=== PATIENT | male | born 1975 | race Caucasian/White ===

== ENCOUNTER → 2017-09-13 12:24 | Outpatient (CLI) | payer SELFPAY ==
--- NOTE | 2017-09-13 12:32 | RAD_ITS ---
STUDY: X-RAY - LUMBAR SPINE REASON FOR EXAM: Male, 41 years old. Disc degeneration. History of L4-5 partial disc removed TECHNIQUE: 2 view(s) of the lumbar spine were obtained. COMPARISON: X-rays of the lumbar spine on April 22, 2016 FINDINGS: Normal lumbar lordosis. There is no substantial scoliosis. There is a normal alignment of the vertebrae. Normal vertebral bodies. There are multiple syndesmophytes throughout the lumbar spine and possible ankylosis of the sacroiliac joints. The findings suggest ankylosing spondylitis.. Normal disc space heights. The soft tissue structures are unremarkable. RAD/Lumbar Spine 2 or 3 Views IMPRESSION: Multiple syndesmophytes of the lumbar spine with ankylosis of the sacroiliac joints consistent with ankylosing spondylitis. No acute lesions noted. No significant changes since the prior examination Electronically Signed: Dmitry Beck MD, FACR at 13:26 EST , Service support ,
== END ==
PROVIDERS: Family Provider Family Medicine; PCP Family Medicine; Visit Provider Anesthesiology Pain Medicine
DX: M51.36 Other intervertebral disc degeneration, lumbar region (principal); M45.6 Ankylosing spondylitis lumbar region
CPT/HCPCS: 72100

== ENCOUNTER → 2017-11-30 07:31 | Outpatient (CLI) | payer OTHER, SELFPAY | PROVIDERS: Family Provider Family Medicine; PCP Family Medicine | DX: E27.40 Unspecified adrenocortical insufficiency (principal) | CPT/HCPCS: 36415; 82533 ==

== ENCOUNTER → 2018-04-04 07:32 | Outpatient (CLI) | payer SELFPAY ==
[2018-04-04 08:53] LABS: Free T3 2.9 pg/mL (2.18-3.98)
[2018-04-04 08:54] LABS: Vitamin D,25 Hydroxy 35.4 ng/mL (29.95-100.01)
== END ==
PROVIDERS: Family Provider Family Medicine; PCP Family Medicine
DX: E03.9 Hypothyroidism, unspecified (principal); R53.83 Other fatigue
CPT/HCPCS: 36415; 82306; 84403; 84481

== ENCOUNTER → 2018-06-16 08:23 | Outpatient (CLI) | payer SELFPAY ==
[2018-06-16 10:34] LABS: Absolute Lymphocyte Count 1.57 X10^3/ul (0.83-4.51); Absolute Neutrophil Count 2.6 X10^3/uL (2.0-7.7); Basophil# 0.01 X10^3/uL; Basophil% 0.2 % (0-1); Eosinophil# 0.14 X10^3/uL; Eosinophils% 2.8 % (0-5); Hematocrit 40.3 % (40-54); Hemoglobin 12.8 g/dl (13.0-16.5); Lymphocyte # 1.57 X10^3/ul (4.0); Lymphocyte % 31.9 % (19-41); Mean Corp Hgb Conc 31.8 g/gl (32-36); Mean Corpuscular Hgb 27.8 pg (27.0-32.0); Mean Corpuscular Volume 87.6 fL (80-94); Mean Platelet Vol. 11.2 fl (6.2-12.0); Monocyte# 0.58 X10^3/uL; Monocyte% 11.8 % (0-10); Neutrophil # 2.62 X10^3/uL (2.7-7.7); Neutrophil % 53.3 % (47-70); Platelet Count 232 K/mm3 (150-450); RBC Distribution Width CV 14.2 % (11.6-14.6); RBC Distribution Width SD 45.4 fl (35.1-43.9); White Blood Count 4.9 K/mm3 (4.4-11.0)
[2018-06-16 10:37] LABS: POSITIVE COUNT NO; POSITIVE DIFFERENTIAL NO; POSITIVE MORPHOLOGY NO
[2018-06-16 11:02] LABS: Anion Gap 10 (5-15); BUN 15 mg/dL (7-18); BUN/Creat Ratio 12.5 RATIO (10-20); Calcium,Total 8.7 mg/dL (8.5-10.1); Chloride 108 mmol/L (98-107); EST Glomerular Filtration Rate 70 mL/min (>60); Est Glom Filt Rate - Afr Amer 85 mL/min (>60); Glucose 73 mg/dL (74-106); Potassium 4.1 mmol/L (3.5-5.1); Sodium Level 144 mmol/L (136-145)
== END ==
PROVIDERS: Family Provider Family Medicine; PCP Family Medicine; Referring Provider Surgery; Visit Provider Surgery
DX: K62.5 Hemorrhage of anus and rectum (principal)
CPT/HCPCS: 36415; 80048; 85025

== ENCOUNTER 2018-06-24 05:27 | Day surgery (SDC) | payer SELFPAY, OTHER ==
[2018-06-24] VITALS (7 sets, daily range): BP systolic 110–127; BP diastolic 76–101; PULSE 68–80; RESP 16; TEMP 36.5; O2SAT 95–100; BMI 28.7
--- NOTE | 2018-06-24 | IMM_PTH ---
PATIENT: TRENT EMERSON LOC: EN U#:[id number] AGE/SX: 42/M ROOM: RE06/24/[address]: Dr. Celso Duncan MD : 1975 BED: DIS: 06/24/2018 SPEC #: [id number] RECD: 06/27/18 10:27 STATUS: MARGI REGermán #: [id number] IRMA: 06/24/18 00:[address]: Celso Duncan DEPT: IMMUNOHISTOCHEMISTRY RECD BY: Jeannine Sanford ENTERED: 06/27/18 10:27 SP TYPE: IMMUNO OTHR DR: Dr. Flavio Engel DO Tissues: B - Stomach, NOS Procedures: H Pylori (initial) PHYSICIAN & INSTITUTION [place] [id number] SPECIMEN INFORMATION: Tissue Source: B - Antral biopsy Clinical Info: GERD, esophagitis, rectal bleeding Specimen Number: [id number] CPT code: 14099 METHODOLOGY: Deparaffinized sections of prefer/formalin-fixed tissue or PAP/DQ stained slides are incubated with monoclonal/polyclonal antibodies/oligonucleotide probes. Localization is made via biotin free immunoperoxidase method. Appropriate controls are performed and reacted as expected. Results on target cell population are indicated in the following table: RESULTS: ANTIBODY / CLONE RESULT Block B H Pylori (polyclonal) negative These tests were developed and their performance characteristics determined by [facility]. They may not have been cleared or approved by the U.S. Food and Drug Administration. The FDA has determined that such clearance or approval is not necessary. INTERPRETATION: B. Antral biopsy: Negative for Helicobacter pylori organisms. AM:lindsey 06/28/18
--- NOTE | 2018-06-24 06:30 | EGD_PTH ---
PATIENT: TRENT EMERSON LOC: EN U#:[id number] AGE/SX: 42/M ROOM: RE06/24/[address]: Dr. Celso Duncan MD : 1975 BED: DIS: 06/24/2018 SPEC #: [id number] RECD: 06/24/18 13:41 STATUS: MARGI LEISA #: [id number] IRMA: 06/24/18 06:[address]: Celso Duncan DEPT: SURGICAL PATHOLOGY RECD BY: Hong Montes De Oca ENTERED: 06/24/18 13:42 SP TYPE: EGD BIOPSY OT DR: Dr. Flavio Engel, Tissues: A - Duodenum, NOS B - Gastric mucous membrane C - Esophageal mucous membrane D - COLON BIOPSY Procedures: Surgery Specimen Level IV HEADER OPERATION: Colonoscopy, EGD (MOD) PRE-OP DIAGNOSIS: GERD, esophagitis, rectal bleeding TISSUE SUBMITTED: A. Duodenal biopsy, B. Antral biopsy for histo and H. Pylori, C. Distal esophagus biopsy, D. Random colonic biopsy MICROSCOPIC DIAGNOSIS A. Duodenum, biopsy: No significant pathologic change. No evidence of duodenitis. B. Gastric antrum, biopsy: Mild chronic gastritis. C. Distal esophagus, biopsy: Fragments of benign squamous mucosa. D. Colon, random biopsy: No pathologic change. AM:lindsey 06/27/18 COMMENT A. Mild Meaghan's gland hyperplasia is suspected. B. The results of immunohistochemistry for Helicobacter pylori will be reported separately ([id number]). MICROSCOPIC DESCRIPTION Slides are reviewed. GROSS DESCRIPTION A - Received in fixative is one container labeled with the patient's name and designated duodenum. The specimen consists of one irregular fragment of light berger soft tissue that measures 0.5 x 0.2 x 0.1 cm. The specimen is totally submitted in one cassette. B - Received in fixative is one container labeled with the patient's name and designated biopsy antrum - gastric. The specimen consists of one irregular fragment of light berger soft tissue that measures 0.2 x 0.1 x 0.1 cm. The specimen is totally submitted in one cassette. C - Received in fixative is one container labeled with the patient's name and designated biopsy distal esophagus. The specimen consists of two irregular fragments of light berger soft tissue that in aggregate measure 0.5 x 0.3 x 0.1 cm. The specimen is totally submitted in one cassette. D - Received in fixative is one container labeled with the patient's name and designated random colon biopsy. The specimen consists of multiple irregular fragments of light berger soft tissue that in aggregate measure 2 x 0.5 x 0.1 cm. The specimen is totally submitted in one cassette. / SJ:rg 06/24/18 TC:3 CPT: 41316 x4
--- NOTE | 2018-06-24 07:09 | OP.ENDO_ITS ---
Patient Name: Pete Headley Procedure Date: 06/24/2018 6:09 AM Date of : 1975 Age: 42 Procedure: Upper GI endoscopy Indications: Suspected esophageal reflux Providers: Celso Duncan MD Referring MD: Celso Duncan MD Medicines: Midazolam 4 mg IV, Meperidine 100 mg IV Complications: No immediate complications. Procedure: Pre-Anesthesia Assessment: - Prior to the procedure, a History and Physical was performed, and patient medications and allergies were reviewed. The patient's tolerance of previous anesthesia was also reviewed. The risks and benefits of the procedure and the sedation options and risks were discussed with the patient. All questions were answered, and informed consent was obtained. Prior Anticoagulants: The patient has taken no previous anticoagulant or antiplatelet agents. ASA Grade Assessment: II - A patient with mild systemic disease. After reviewing the risks and benefits, the patient was deemed in satisfactory condition to undergo the procedure. After obtaining informed consent, the endoscope was passed under direct vision. Throughout the procedure, the patient's blood pressure, pulse, and oxygen saturations were monitored continuously. The gastroscope was introduced through the mouth, and advanced to the second part of duodenum. The upper GI endoscopy was accomplished without difficulty. The patient tolerated the procedure well. Moderate Sedation: Moderate (conscious) sedation was personally administered by the endoscopist. The following parameters were monitored: oxygen saturation, heart rate, blood pressure, and response to care. Total physician intraservice time was 15 minutes. Scope In: 6:38:24 AM Scope Out: 6:43:52 AM Total Procedure Duration Time 0 hours 5 minutes 28 seconds Findings: LA Grade A (one or more mucosal breaks less than 5 mm, not extending between tops of 2 mucosal folds) esophagitis with no bleeding was found 40 cm from the incisors. Biopsies were taken with a cold forceps for histology. A small hiatal hernia was present. Diffuse mildly erythematous mucosa without bleeding was found in the gastric antrum. Biopsies were taken with a cold forceps for histology. Diffuse mildly erythematous mucosa without active bleeding and with no stigmata of bleeding was found in the first portion of the duodenum. Biopsies were taken with a cold forceps for histology. The hypopharynx was normal. Impression: - LA Grade A reflux esophagitis. Biopsied. - Small hiatal hernia. - Erythematous mucosa in the antrum. Biopsied. - Erythematous duodenopathy. Biopsied. - Normal hypopharynx. Recommendation: - Discharge patient to home. - Resume previous diet. - Continue present medications. - Use Prilosec (omeprazole) 40 mg PO daily. - Telephone my office for pathology results in 1 week. Procedure Code(s): --- Professional --- 47615, Esophagogastroduodenoscopy, flexible, transoral; with biopsy, single or multiple 08146, 59, Moderate sedation services provided by the same physician or other qualified health care partner performing the diagnostic or therapeutic service that the sedation supports, requiring the presence of an independent trained observer to assist in the monitoring of the patient's level of consciousness and physiological status; initial 15 minutes of intraservice time, patient age 5 years or older Diagnosis Code(s): --- Professional --- K21.0, Gastro-esophageal reflux disease with esophagitis K44.9, Diaphragmatic hernia without obstruction or gangrene K31.89, Other diseases of stomach and duodenum CPT copyright 2017 [employer]. All rights reserved. The codes documented in this report are preliminary and upon superintendent general review may be revised to meet current compliance requirements. Celso Duncan MD 06/24/2018 7:08:42 AM This report has been signed electronically. Number of Addenda: 0 Note Initiated On: 06/24/2018 6:09 AM
--- NOTE | 2018-06-24 07:12 | OP.ENDO_ITS ---
Patient Name: Pete Headley Procedure Date: 06/24/2018 6:45 AM Date of : 1975 Age: 42 Procedure: Colonoscopy Indications: Rectal bleeding Providers: Celso Duncan MD Referring MD: Celso Duncan MD Medicines: Midazolam 1 mg IV, Meperidine 50 mg IV Patient Profile: Last Colonoscopy: none. The patient's first colonoscopy is today. Complications: No immediate complications. Procedure: Pre-Anesthesia Assessment: - Prior to the procedure, a History and Physical was performed, and patient medications and allergies were reviewed. The patient's tolerance of previous anesthesia was also reviewed. The risks and benefits of the procedure and the sedation options and risks were discussed with the patient. All questions were answered, and informed consent was obtained. Prior Anticoagulants: The patient has taken no previous anticoagulant or antiplatelet agents. ASA Grade Assessment: II - A patient with mild systemic disease. After reviewing the risks and benefits, the patient was deemed in satisfactory condition to undergo the procedure. - Prior to the procedure, a History and Physical was performed, and patient medications and allergies were reviewed. The patient's tolerance of previous anesthesia was also reviewed. The risks and benefits of the procedure and the sedation options and risks were discussed with the patient. All questions were answered, and informed consent was obtained. Prior Anticoagulants: The patient has taken no previous anticoagulant or antiplatelet agents. ASA Grade Assessment: II - A patient with mild systemic disease. After reviewing the risks and benefits, the patient was deemed in satisfactory condition to undergo the procedure. After I obtained informed consent, the scope was passed under direct vision. Throughout the procedure, the patient's blood pressure, pulse, and oxygen saturations were monitored continuously. The colonoscope was introduced through the anus and advanced to the cecum, identified by appendiceal orifice and ileocecal valve. The colonoscopy was performed without difficulty. The patient tolerated the procedure well. The quality of the bowel preparation was good. The ileocecal valve was photographed. Moderate Sedation: Moderate (conscious) sedation was personally administered by the endoscopist. The following parameters were monitored: oxygen saturation, heart rate, blood pressure, and response to care. Total physician intraservice time was 15 minutes. Scope In: 6:47:31 AM Scope Withdrawal Time 0 hours 9 minutes 5 seconds Scope Out: 7:01:01 AM Total Procedure Duration Time 0 hours 13 minutes 30 seconds Findings: The perianal and digital rectal examinations were normal. Multiple diverticula were found in the sigmoid colon. Biopsies for histology were taken with a cold forceps from the entire colon for evaluation of microscopic colitis. The exam was otherwise without abnormality. Impression: - Diverticulosis in the sigmoid colon. Biopsied. - The examination was otherwise normal. Recommendation: - Discharge patient to home. - Resume previous diet. - Continue present medications. - Repeat colonoscopy in 10 years for screening purposes. - Telephone my office for pathology results in 1 week. Procedure Code(s): --- Professional --- 93459, Colonoscopy, flexible; with biopsy, single or multiple 72206, 59, Moderate sedation services provided by the same physician or other qualified health pet care attendant performing the diagnostic or therapeutic service that the sedation supports, requiring the presence of an independent trained observer to assist in the monitoring of the patient's level of consciousness and physiological status; initial 15 minutes of intraservice time, patient age 5 years or older Diagnosis Code(s): --- Professional --- K62.5, Hemorrhage of anus and rectum K57.30, Diverticulosis of large intestine without perforation or abscess without bleeding CPT copyright 2017 [employer]. All rights reserved. The codes documented in this report are preliminary and upon cardiac exercise physiologist review may be revised to meet current compliance requirements. Celso Duncan MD 06/24/2018 7:12:16 AM This report has been signed electronically. Number of Addenda: 0 Note Initiated On: 06/24/2018 6:45 AM
== END 2018-06-24 07:46 | disposition home or self-care (01) ==
LOC: EN 05:27 → AC 05:32
PROVIDERS: Family Provider Family Medicine; PCP Family Medicine; Referring Provider Surgery; Visit Provider Surgery
PROC: 0DJD8ZZ Inspection of Lower Intestinal Tract, Via Natural or Artificial Opening Endoscopic (ICD-10-PCS; CPT 45378; principal; 2018-06-24 06:25)
DX: K21.0 Gastro-esophageal reflux disease with esophagitis (principal); K29.50 Unspecified chronic gastritis without bleeding; K44.9 Diaphragmatic hernia without obstruction or gangrene; K31.89 Other diseases of stomach and duodenum; K62.5 Hemorrhage of anus and rectum; K57.30 Diverticulosis of large intestine without perforation or abscess without bleeding; E03.9 Hypothyroidism, unspecified; F32.9 Major depressive disorder, single episode, unspecified; F41.9 Anxiety disorder, unspecified; M19.90 Unspecified osteoarthritis, unspecified site; Z79.899 Other long term (current) drug therapy; Z87.891 Personal history of nicotine dependence
CPT/HCPCS: 43239; 45380; 88305; 88342; 99152; 99153; J7120

== ENCOUNTER → 2018-09-27 12:52 | Outpatient (CLI) | payer OTHER, SELFPAY ==
[2018-06-24 05:48] VITALS: BMI 28.7
== END ==
PROVIDERS: Family Provider Family Medicine; PCP Family Medicine
DX: M11.9 Crystal arthropathy, unspecified (principal)
CPT/HCPCS: 36415; 86140

== ENCOUNTER → 2018-10-26 08:21 | Outpatient (CLI) | payer OTHER, SELFPAY ==
[2018-06-24 05:48] VITALS: BMI 28.7
[2018-10-26 09:10] LABS: Free T3 3.1 pg/mL (2.18-3.98)
== END ==
PROVIDERS: Family Provider Family Medicine; PCP Family Medicine
DX: E03.9 Hypothyroidism, unspecified (principal)
CPT/HCPCS: 36415; 84481

== ENCOUNTER 2018-10-31 10:38 | Outpatient (RCR) | payer OTHER, SELFPAY ==
[2018-06-24 05:48] VITALS: BMI 28.7
[2018-10-17 15:01] LABS: Absolute Lymphocyte Count 1.63 X10^3/ul (0.83-4.51); Absolute Neutrophil Count 3.8 X10^3/uL (2.0-7.7); Basophil# 0.02 X10^3/uL; Basophil% 0.3 % (0-1); Eosinophil# 0.11 X10^3/uL; Eosinophils% 1.8 % (0-5); Hematocrit 30.8 % (40-54); Hemoglobin 9.4 g/dl (13.0-16.5); Lymphocyte # 1.63 X10^3/ul (4.0); Lymphocyte % 26.8 % (19-41); Mean Corp Hgb Conc 30.5 g/gl (32-36); Mean Corpuscular Hgb 24.9 pg (27.0-32.0); Mean Corpuscular Volume 81.7 fL (80-94); Mean Platelet Vol. 9.6 fl (6.2-12.0); Monocyte# 0.51 X10^3/uL; Monocyte% 8.4 % (0-10); Neutrophil # 3.81 X10^3/uL (2.7-7.7); Neutrophil % 62.7 % (47-70); Platelet Count 402 K/mm3 (150-450); RBC Distribution Width CV 16.1 % (11.6-14.6); Red Blood Count 3.77 M/mm3 (4.6-6.2); White Blood Count 6.1 K/mm3 (4.4-11.0)
[2018-10-17 15:02] LABS: POSITIVE COUNT NO; POSITIVE DIFFERENTIAL NO; POSITIVE MORPHOLOGY NO
[2018-10-17 15:24] LABS: Creatinine, Serum 0.89 mg/dL (0.70-1.30); EST Glomerular Filtration Rate 99 mL/min (>60); Est Glom Filt Rate - Afr Amer 119 mL/min (>60)
[2018-10-24 11:18] LABS: Absolute Lymphocyte Count 1.52 X10^3/ul (0.83-4.51); Absolute Neutrophil Count 3.2 X10^3/uL (2.0-7.7); Basophil# 0.02 X10^3/uL; Basophil% 0.4 % (0-1); Eosinophil# 0.16 X10^3/uL; Hemoglobin 9.8 g/dl (13.0-16.5); Lymphocyte # 1.52 X10^3/ul (4.0); Lymphocyte % 28.5 % (19-41); Mean Corp Hgb Conc 29.7 g/gl (32-36); Mean Corpuscular Hgb 24.6 pg (27.0-32.0); Mean Corpuscular Volume 82.9 fL (80-94); Mean Platelet Vol. 10.9 fl (6.2-12.0); Monocyte# 0.46 X10^3/uL; Monocyte% 8.6 % (0-10); Neutrophil # 3.18 X10^3/uL (2.7-7.7); Neutrophil % 59.5 % (47-70); Platelet Count 319 K/mm3 (150-450); RBC Distribution Width CV 16.2 % (11.6-14.6); RBC Distribution Width SD 48.7 fl (35.1-43.9); Red Blood Count 3.98 M/mm3 (4.6-6.2); White Blood Count 5.3 K/mm3 (4.4-11.0)
[2018-10-24 11:23] LABS: POSITIVE COUNT NO; POSITIVE DIFFERENTIAL NO; POSITIVE MORPHOLOGY NO
[2018-10-24 11:24] LABS: Creatinine, Serum 0.86 mg/dL (0.70-1.30); EST Glomerular Filtration Rate 103 mL/min (>60); Est Glom Filt Rate - Afr Amer 125 mL/min (>60)
[2018-10-31 11:03] LABS: Absolute Lymphocyte Count 1.54 X10^3/ul (0.83-4.51); Absolute Neutrophil Count 2.2 X10^3/uL (2.0-7.7); Basophil# 0.01 X10^3/uL; Basophil% 0.2 % (0-1); Eosinophil# 0.24 X10^3/uL; Eosinophils% 5.3 % (0-5); Hematocrit 32.8 % (40-54); Hemoglobin 9.9 g/dl (13.0-16.5); Lymphocyte # 1.54 X10^3/ul (4.0); Lymphocyte % 34.1 % (19-41); Mean Corp Hgb Conc 30.2 g/gl (32-36); Mean Corpuscular Hgb 25.3 pg (27.0-32.0); Mean Corpuscular Volume 83.7 fL (80-94); Mean Platelet Vol. 10.6 fl (6.2-12.0); Monocyte# 0.48 X10^3/uL; Monocyte% 10.6 % (0-10); Neutrophil # 2.24 X10^3/uL (2.7-7.7); Neutrophil % 49.8 % (47-70); Platelet Count 271 K/mm3 (150-450); RBC Distribution Width CV 16.1 % (11.6-14.6); RBC Distribution Width SD 48.3 fl (35.1-43.9); Red Blood Count 3.92 M/mm3 (4.6-6.2); White Blood Count 4.5 K/mm3 (4.4-11.0)
[2018-10-31 11:04] LABS: POSITIVE COUNT NO; POSITIVE DIFFERENTIAL NO; POSITIVE MORPHOLOGY NO
[2018-10-31 11:13] LABS: Creatinine, Serum 0.82 mg/dL (0.70-1.30); EST Glomerular Filtration Rate 109 mL/min (>60); Est Glom Filt Rate - Afr Amer 131 mL/min (>60)
== END 2018-11-06 23:59 ==
LOC: HHLAB 10:38
PROVIDERS: Family Provider Family Medicine; PCP Family Medicine
DX: T81.42XA Infection following a procedure, deep incisional surgical site, initial encounter (principal); L02.416 Cutaneous abscess of left lower limb
CPT/HCPCS: 82565; 85025; 86140

== ENCOUNTER → 2018-11-07 08:46 | Outpatient (CLI) | payer OTHER, SELFPAY ==
[2018-06-24 05:48] VITALS: BMI 28.7
[2018-11-07 09:48] LABS: Thyroid Stim Hormone (TSH) < 0.01 uIU/mL (0.358-3.74)
[2018-11-10 14:23] LABS: T3 Reverse 8.2 ng/dL (9.2-24.1); Thyroid Peroxidase AB 10 IU/mL (0-34)
== END ==
PROVIDERS: Family Provider Family Medicine; PCP Family Medicine
DX: C03.9 Malignant neoplasm of gum, unspecified (principal); R53.83 Other fatigue
CPT/HCPCS: 36415; 82310; 84443; 84482; 86376

== ENCOUNTER → 2018-11-14 | Outpatient (CLI) | payer OTHER, SELFPAY ==
[2018-06-24 05:48] VITALS: BMI 28.7
--- NOTE | 2018-11-14 15:08 | US_ITS ---
STUDY: THYROID ULTRASOUND REASON FOR EXAM: Male, 42 years old. Hypothyroidism. Hoarseness. TECHNIQUE: Ultrasound evaluation of the thyroid was performed with real-time and static vaughan-scale imaging. COMPARISON: None. FINDINGS: RIGHT LOBE: The right lobe of the thyroid gland measures 4.5 cm x 1.3 cm x 1.6 cm. There is a homogeneous echotexture. There are no demonstrated solid, cystic or complex lesions. LEFT LOBE: The left lobe of the thyroid gland measures 4.0 cm x 1.7 cm x 1.0 cm. There is a homogeneous echotexture. There are no demonstrated solid, cystic or complex lesions. ISTHMUS: The isthmus measures 1.0 mm. The regional lymph nodes are normal. US/Thyroid IMPRESSION: Normal ultrasound examination of the thyroid. Electronically Signed: Tamir Stark, at 8:13 EDT , Service support ,
[2018-11-14 18:38] LABS: Absolute Lymphocyte Count 2.01 X10^3/ul (0.83-4.51); Absolute Neutrophil Count 3.4 X10^3/uL (2.0-7.7); Basophil# 0.02 X10^3/uL; Basophil% 0.3 % (0-1); Eosinophil# 0.16 X10^3/uL; Eosinophils% 2.6 % (0-5); Hematocrit 33.5 % (40-54); Hemoglobin 10.7 g/dl (13.0-16.5); Lymphocyte # 2.01 X10^3/ul (4.0); Lymphocyte % 32.7 % (19-41); Mean Corp Hgb Conc 31.9 g/gl (32-36); Mean Corpuscular Hgb 25.7 pg (27.0-32.0); Mean Corpuscular Volume 80.3 fL (80-94); Mean Platelet Vol. 10.6 fl (6.2-12.0); Monocyte% 9.8 % (0-10); Neutrophil # 3.35 X10^3/uL (2.7-7.7); Neutrophil % 54.4 % (47-70); POSITIVE COUNT NO; POSITIVE DIFFERENTIAL NO; POSITIVE MORPHOLOGY NO; Platelet Count 319 K/mm3 (150-450); RBC Distribution Width CV 16.3 % (11.6-14.6); RBC Distribution Width SD 46.7 fl (35.1-43.9); Red Blood Count 4.17 M/mm3 (4.6-6.2); White Blood Count 6.2 K/mm3 (4.4-11.0)
[2018-11-14 18:52] LABS: Creatinine, Serum 0.85 mg/dL (0.70-1.30); EST Glomerular Filtration Rate 104 mL/min (>60); Est Glom Filt Rate - Afr Amer 126 mL/min (>60)
== END | disposition home or self-care (01) ==
LOC: US 15:07
PROVIDERS: Family Provider Family Medicine; PCP Family Medicine
DX: E03.9 Hypothyroidism, unspecified (principal); R49.0 Dysphonia
CPT/HCPCS: 76536; 82565; 85025; 86140

== ENCOUNTER 2018-12-05 12:08 | Outpatient (RCR) | payer OTHER, SELFPAY ==
[2018-06-24 05:48] VITALS: BMI 28.7
[2018-11-07 12:03] LABS: Absolute Lymphocyte Count 1.66 X10^3/ul (0.83-4.51); Absolute Neutrophil Count 2.9 X10^3/uL (2.0-7.7); Basophil# 0.01 X10^3/uL; Basophil% 0.2 % (0-1); Eosinophil# 0.26 X10^3/uL; Eosinophils% 4.9 % (0-5); Hematocrit 34.3 % (40-54); Hemoglobin 10.5 g/dl (13.0-16.5); Lymphocyte # 1.66 X10^3/ul (4.0); Mean Corp Hgb Conc 30.6 g/gl (32-36); Mean Corpuscular Hgb 24.7 pg (27.0-32.0); Mean Corpuscular Volume 80.7 fL (80-94); Mean Platelet Vol. 10.1 fl (6.2-12.0); Monocyte% 9.3 % (0-10); Neutrophil # 2.92 X10^3/uL (2.7-7.7); Neutrophil % 54.4 % (47-70); Platelet Count 274 K/mm3 (150-450); RBC Distribution Width CV 16.2 % (11.6-14.6); RBC Distribution Width SD 47.8 fl (35.1-43.9); Red Blood Count 4.25 M/mm3 (4.6-6.2); White Blood Count 5.4 K/mm3 (4.4-11.0)
[2018-11-07 12:08] LABS: POSITIVE COUNT NO; POSITIVE DIFFERENTIAL NO; POSITIVE MORPHOLOGY NO
[2018-11-07 12:11] LABS: Creatinine, Serum 0.83 mg/dL (0.70-1.30); EST Glomerular Filtration Rate 108 mL/min (>60); Est Glom Filt Rate - Afr Amer 130 mL/min (>60)
[2018-12-05 12:20] LABS: Basophil# 0.01 X10^3/uL; Basophil% 0.2 % (0-1); Eosinophils% 1.8 % (0-5); Hematocrit 32.8 % (40-54); Hemoglobin 10.2 g/dl (13.0-16.5); Lymphocyte % 19.9 % (19-41); Mean Corp Hgb Conc 31.1 g/gl (32-36); Mean Corpuscular Hgb 24.5 pg (27.0-32.0); Mean Corpuscular Volume 78.7 fL (80-94); Mean Platelet Vol. 9.8 fl (6.2-12.0); Monocyte# 0.32 X10^3/uL; Monocyte% 5.8 % (0-10); Neutrophil # 3.98 X10^3/uL (2.7-7.7); Neutrophil % 72.1 % (47-70); Platelet Count 347 K/mm3 (150-450); RBC Distribution Width CV 15.5 % (11.6-14.6); RBC Distribution Width SD 43.4 fl (35.1-43.9); Red Blood Count 4.17 M/mm3 (4.6-6.2); White Blood Count 5.5 K/mm3 (4.4-11.0)
[2018-12-05 12:23] LABS: POSITIVE COUNT NO; POSITIVE DIFFERENTIAL NO; POSITIVE MORPHOLOGY NO
[2018-12-05 13:36] LABS: EST Glomerular Filtration Rate 97 mL/min (>60); Est Glom Filt Rate - Afr Amer 117 mL/min (>60); Potassium 3.8 mmol/L (3.5-5.1)
== END 2018-12-06 23:59 ==
LOC: HHLAB 12:08
PROVIDERS: Family Provider Family Medicine; PCP Family Medicine
DX: T81.42XA Infection following a procedure, deep incisional surgical site, initial encounter (principal); L02.416 Cutaneous abscess of left lower limb
CPT/HCPCS: 82565; 84132; 85025; 86140

== ENCOUNTER 2019-01-03 07:45 | Outpatient (RCR) | payer OTHER, SELFPAY ==
[2018-06-24 05:48] VITALS: BMI 28.7
[2018-12-10 09:47] LABS: Vancomycin, Trough Level 9.1 ug/mL (5.0-15.0)
[2018-12-13 10:08] LABS: Absolute Lymphocyte Count 2.38 X10^3/ul (0.83-4.51); Absolute Neutrophil Count 2.9 X10^3/uL (2.0-7.7); Basophil# 0.03 X10^3/uL; Basophil% 0.5 % (0-1); Eosinophil# 0.28 X10^3/uL; Eosinophils% 4.5 % (0-5); Hematocrit 35.3 % (40-54); Lymphocyte # 2.38 X10^3/ul (4.0); Lymphocyte % 38.3 % (19-41); Mean Corp Hgb Conc 31.2 g/gl (32-36); Mean Corpuscular Hgb 24.8 pg (27.0-32.0); Mean Corpuscular Volume 79.7 fL (80-94); Mean Platelet Vol. 9.7 fl (6.2-12.0); Monocyte# 0.67 X10^3/uL; Monocyte% 10.8 % (0-10); Neutrophil # 2.85 X10^3/uL (2.7-7.7); Neutrophil % 45.9 % (47-70); POSITIVE COUNT NO; POSITIVE DIFFERENTIAL NO; POSITIVE MORPHOLOGY NO; Platelet Count 380 K/mm3 (150-450); RBC Distribution Width CV 15.9 % (11.6-14.6); RBC Distribution Width SD 46.5 fl (35.1-43.9); Red Blood Count 4.43 M/mm3 (4.6-6.2); White Blood Count 6.2 K/mm3 (4.4-11.0)
[2018-12-13 10:15] LABS: EST Glomerular Filtration Rate 98 mL/min (>60); Est Glom Filt Rate - Afr Amer 119 mL/min (>60); Vancomycin, Trough Level 11.3 ug/mL (5.0-15.0)
[2018-12-19 10:23] LABS: Absolute Lymphocyte Count 1.83 X10^3/ul (0.83-4.51); Absolute Neutrophil Count 3.3 X10^3/uL (2.0-7.7); Basophil# 0.01 X10^3/uL; Basophil% 0.2 % (0-1); Eosinophil# 0.21 X10^3/uL; Eosinophils% 3.6 % (0-5); Lymphocyte # 1.83 X10^3/ul (4.0); Lymphocyte % 31.3 % (19-41); Mean Corp Hgb Conc 31.4 g/gl (32-36); Mean Corpuscular Hgb 24.8 pg (27.0-32.0); Mean Corpuscular Volume 78.8 fL (80-94); Mean Platelet Vol. 9.9 fl (6.2-12.0); Monocyte% 8.5 % (0-10); Neutrophil % 56.4 % (47-70); POSITIVE COUNT NO; POSITIVE DIFFERENTIAL NO; POSITIVE MORPHOLOGY NO; Platelet Count 331 K/mm3 (150-450); RBC Distribution Width CV 15.9 % (11.6-14.6); RBC Distribution Width SD 45.7 fl (35.1-43.9); Red Blood Count 4.44 M/mm3 (4.6-6.2); White Blood Count 5.9 K/mm3 (4.4-11.0)
[2018-12-19 10:42] LABS: Creatinine, Serum 0.96 mg/dL (0.70-1.30); EST Glomerular Filtration Rate 91 mL/min (>60); Est Glom Filt Rate - Afr Amer 110 mL/min (>60)
[2018-12-19 10:46] LABS: Vancomycin, Trough Level < 0.8 ug/mL (5.0-15.0)
[2018-12-26 10:08] LABS: Absolute Lymphocyte Count 2.39 X10^3/ul (0.83-4.51); Absolute Neutrophil Count 3.3 X10^3/uL (2.0-7.7); Basophil# 0.02 X10^3/uL; Basophil% 0.3 % (0-1); Eosinophil# 0.31 X10^3/uL; Eosinophils% 4.7 % (0-5); Hematocrit 35.9 % (40-54); Hemoglobin 11.3 g/dl (13.0-16.5); Lymphocyte # 2.39 X10^3/ul (4.0); Lymphocyte % 36.5 % (19-41); Mean Corp Hgb Conc 31.5 g/gl (32-36); Mean Corpuscular Hgb 24.8 pg (27.0-32.0); Mean Corpuscular Volume 78.9 fL (80-94); Mean Platelet Vol. 9.9 fl (6.2-12.0); Monocyte# 0.57 X10^3/uL; Monocyte% 8.7 % (0-10); Neutrophil # 3.25 X10^3/uL (2.7-7.7); Neutrophil % 49.6 % (47-70); Platelet Count 249 K/mm3 (150-450); RBC Distribution Width CV 16.3 % (11.6-14.6); RBC Distribution Width SD 46.9 fl (35.1-43.9); Red Blood Count 4.55 M/mm3 (4.6-6.2); White Blood Count 6.6 K/mm3 (4.4-11.0)
[2018-12-26 10:09] LABS: POSITIVE COUNT NO; POSITIVE DIFFERENTIAL NO; POSITIVE MORPHOLOGY NO
[2018-12-26 11:02] LABS: CPK Total, Creatine Kinase 82 U/L (39-308); Creatinine, Serum 1.01 mg/dL (0.70-1.30); EST Glomerular Filtration Rate 85 mL/min (>60); Est Glom Filt Rate - Afr Amer 103 mL/min (>60)
[2019-01-03 10:05] LABS: Absolute Lymphocyte Count 2.01 X10^3/ul (0.83-4.51); Basophil# 0.01 X10^3/uL; Basophil% 0.2 % (0-1); Eosinophil# 0.26 X10^3/uL; Eosinophils% 4.4 % (0-5); Hemoglobin 11.3 g/dl (13.0-16.5); Lymphocyte # 2.01 X10^3/ul (4.0); Lymphocyte % 34.4 % (19-41); Mean Corp Hgb Conc 31.4 g/gl (32-36); Mean Corpuscular Hgb 24.6 pg (27.0-32.0); Mean Corpuscular Volume 78.4 fL (80-94); Mean Platelet Vol. 10.6 fl (6.2-12.0); Monocyte% 10.3 % (0-10); Neutrophil # 2.96 X10^3/uL (2.7-7.7); Neutrophil % 50.5 % (47-70); Platelet Count 204 K/mm3 (150-450); RBC Distribution Width CV 16.2 % (11.6-14.6); RBC Distribution Width SD 45.1 fl (35.1-43.9); Red Blood Count 4.59 M/mm3 (4.6-6.2); White Blood Count 5.9 K/mm3 (4.4-11.0)
[2019-01-03 10:06] LABS: POSITIVE COUNT NO; POSITIVE DIFFERENTIAL NO; POSITIVE MORPHOLOGY NO
[2019-01-03 10:13] LABS: CPK Total, Creatine Kinase 144 U/L (39-308); Creatinine, Serum 0.91 mg/dL (0.70-1.30); EST Glomerular Filtration Rate 96 mL/min (>60); Est Glom Filt Rate - Afr Amer 116 mL/min (>60)
== END 2019-01-06 23:59 ==
LOC: HHLAB 07:45
PROVIDERS: Family Provider Family Medicine; PCP Family Medicine
DX: T85.79XA Infection and inflammatory reaction due to other internal prosthetic devices, implants and grafts, initial encounter (principal); Z45.2 Encounter for adjustment and management of vascular access device
CPT/HCPCS: 80202; 82550; 82565; 85025; 86140

== ENCOUNTER → 2019-01-06 10:11 | Outpatient (CLI) | payer OTHER, SELFPAY ==
[2018-06-24 05:48] VITALS: BMI 28.7
[2019-01-06 13:52] LABS: AST(SGOT) 16 U/L (15-37); Alanine Aminotransfer ALT/SGPT 26 U/L (16-61); Albumin, Serum 3.9 g/dL (3.2-5.0); Alkaline Phosphatase 128 U/L (45-117); Bilirubin, Direct 0.13 mg/dL (0.00-0.30); Globulin 4.6 g/dL (2.2-4.2); Protein, Total 8.5 g/dL (6.4-8.2)
[2019-01-09 11:36] LABS: HEPATITIS B SURFACE AG Negative (Negative)
== END ==
PROVIDERS: Family Provider Family Medicine; PCP Family Medicine
DX: R63.0 Anorexia (principal); R53.81 Other malaise; R11.0 Nausea
CPT/HCPCS: 36415; 80076; 87340

== ENCOUNTER 2019-01-09 18:43 | Outpatient (RCR) | payer OTHER, SELFPAY ==
[2018-06-24 05:48] VITALS: BMI 28.7
[2019-01-09 19:12] LABS: Creatinine, Serum 1.02 mg/dL (0.70-1.30); EST Glomerular Filtration Rate 84 mL/min (>60); Est Glom Filt Rate - Afr Amer 102 mL/min (>60); Potassium 3.9 mmol/L (3.5-5.1)
[2019-01-09 19:17] LABS: Absolute Lymphocyte Count 2.43 X10^3/ul (0.83-4.51); Absolute Neutrophil Count 2.9 X10^3/uL (2.0-7.7); Basophil# 0.01 X10^3/uL; Basophil% 0.2 % (0-1); Eosinophil# 0.27 X10^3/uL; Eosinophils% 4.4 % (0-5); Hematocrit 36.1 % (40-54); Hemoglobin 11.4 g/dl (13.0-16.5); Lymphocyte # 2.43 X10^3/ul (4.0); Lymphocyte % 39.3 % (19-41); Mean Corp Hgb Conc 31.6 g/gl (32-36); Mean Corpuscular Hgb 24.8 pg (27.0-32.0); Mean Corpuscular Volume 78.6 fL (80-94); Mean Platelet Vol. 10.1 fl (6.2-12.0); Monocyte% 9.7 % (0-10); Neutrophil # 2.87 X10^3/uL (2.7-7.7); Neutrophil % 46.2 % (47-70); Platelet Count 292 K/mm3 (150-450); RBC Distribution Width CV 15.8 % (11.6-14.6); RBC Distribution Width SD 45.7 fl (35.1-43.9); Red Blood Count 4.59 M/mm3 (4.6-6.2); White Blood Count 6.2 K/mm3 (4.4-11.0)
[2019-01-09 19:18] LABS: POSITIVE COUNT NO; POSITIVE DIFFERENTIAL NO; POSITIVE MORPHOLOGY NO
== END 2019-02-05 23:59 ==
LOC: LABSPEC 18:43
PROVIDERS: Family Provider Family Medicine; PCP Family Medicine
DX: T84.7XXD Infection and inflammatory reaction due to other internal orthopedic prosthetic devices, implants and grafts, subsequent encounter (principal); Z45.2 Encounter for adjustment and management of vascular access device
CPT/HCPCS: 82565; 84132; 85025; 86140

== ENCOUNTER 2019-01-16 09:29 | Outpatient (RCR) | payer OTHER, SELFPAY ==
[2018-06-24 05:48] VITALS: BMI 28.7
[2019-01-16 10:01] LABS: Absolute Lymphocyte Count 1.96 X10^3/ul (0.83-4.51); Absolute Neutrophil Count 2.5 X10^3/uL (2.0-7.7); Basophil# 0.01 X10^3/uL; Basophil% 0.2 % (0-1); Eosinophil# 0.17 X10^3/uL; Eosinophils% 3.3 % (0-5); Hemoglobin 11.1 g/dl (13.0-16.5); Lymphocyte # 1.96 X10^3/ul (4.0); Lymphocyte % 38.6 % (19-41); Mean Corp Hgb Conc 31.7 g/gl (32-36); Mean Corpuscular Hgb 24.9 pg (27.0-32.0); Mean Corpuscular Volume 78.5 fL (80-94); Mean Platelet Vol. 9.9 fl (6.2-12.0); Monocyte# 0.49 X10^3/uL; Monocyte% 9.6 % (0-10); Neutrophil # 2.45 X10^3/uL (2.7-7.7); Neutrophil % 48.3 % (47-70); Platelet Count 285 K/mm3 (150-450); RBC Distribution Width CV 15.5 % (11.6-14.6); RBC Distribution Width SD 44.4 fl (35.1-43.9); Red Blood Count 4.46 M/mm3 (4.6-6.2); White Blood Count 5.1 K/mm3 (4.4-11.0)
[2019-01-16 10:02] LABS: POSITIVE COUNT NO; POSITIVE DIFFERENTIAL NO; POSITIVE MORPHOLOGY NO
[2019-01-16 10:10] LABS: CPK Total, Creatine Kinase 112 U/L (39-308); Creatinine, Serum 0.87 mg/dL (0.70-1.30); EST Glomerular Filtration Rate 101 mL/min (>60); Est Glom Filt Rate - Afr Amer 122 mL/min (>60)
== END 2019-02-05 23:59 ==
LOC: HHLAB 09:29
PROVIDERS: Family Provider Family Medicine; PCP Family Medicine
DX: T85.79XA Infection and inflammatory reaction due to other internal prosthetic devices, implants and grafts, initial encounter (principal); Z45.2 Encounter for adjustment and management of vascular access device
CPT/HCPCS: 82550; 82565; 85025; 86140

== ENCOUNTER 2019-01-24 11:23 | Outpatient (RCR) | payer OTHER, SELFPAY ==
[2018-06-24 05:48] VITALS: BMI 28.7
[2019-01-24 11:52] LABS: Absolute Lymphocyte Count 2.17 X10^3/ul (0.83-4.51); Absolute Neutrophil Count 1.8 X10^3/uL (2.0-7.7); Basophil# 0.01 X10^3/uL; Basophil% 0.2 % (0-1); Eosinophil# 0.23 X10^3/uL; Eosinophils% 4.7 % (0-5); Lymphocyte # 2.17 X10^3/ul (4.0); Lymphocyte % 44.5 % (19-41); Mean Corp Hgb Conc 31.6 g/gl (32-36); Mean Corpuscular Hgb 25.1 pg (27.0-32.0); Mean Corpuscular Volume 79.5 fL (80-94); Monocyte% 14.3 % (0-10); Neutrophil # 1.77 X10^3/uL (2.7-7.7); Neutrophil % 36.3 % (47-70); Platelet Count 288 K/mm3 (150-450); RBC Distribution Width CV 15.7 % (11.6-14.6); RBC Distribution Width SD 45.4 fl (35.1-43.9); Red Blood Count 4.78 M/mm3 (4.6-6.2); White Blood Count 4.9 K/mm3 (4.4-11.0)
[2019-01-24 11:53] LABS: POSITIVE COUNT NO; POSITIVE DIFFERENTIAL NO; POSITIVE MORPHOLOGY NO
[2019-01-24 12:46] LABS: CPK Total, Creatine Kinase 111 U/L (39-308); Creatinine, Serum 0.95 mg/dL (0.70-1.30); EST Glomerular Filtration Rate 91 mL/min (>60); Est Glom Filt Rate - Afr Amer 110 mL/min (>60)
== END 2019-02-05 23:59 ==
LOC: HHLAB 11:23
DX: T85.79XD Infection and inflammatory reaction due to other internal prosthetic devices, implants and grafts, subsequent encounter (principal); Z45.2 Encounter for adjustment and management of vascular access device; B95.2 Enterococcus as the cause of diseases classified elsewhere
CPT/HCPCS: 82550; 82565; 85025; 86140

== ENCOUNTER → 2019-02-17 07:02 | Outpatient (CLI) | payer OTHER, SELFPAY ==
[2018-06-24 05:48] VITALS: BMI 28.7
[2019-02-17 08:11] LABS: AST(SGOT) 14 U/L (15-37); Alanine Aminotransfer ALT/SGPT 18 U/L (16-61); Albumin, Serum 3.4 g/dL (3.2-5.0); Alkaline Phosphatase 145 U/L (45-117); Bilirubin, Direct 0.08 mg/dL (0.00-0.30); Globulin 4.2 g/dL (2.2-4.2); Protein, Total 7.6 g/dL (6.4-8.2)
[2019-02-17 09:25] LABS: Hepatitis B Surface Antigen Non-Reactive (Nonreactive); Hepatitis C Antibody Non-Reactive (Nonreactive)
== END ==
PROVIDERS: Family Provider Family Medicine; PCP Family Medicine
DX: R63.0 Anorexia (principal); R53.81 Other malaise; R11.0 Nausea
CPT/HCPCS: 80076; 86803; 87340

== ENCOUNTER 2020-02-14 18:41 | Emergency (ER) | payer OTHER, SELFPAY ==
[2018-06-24 05:48] VITALS: BMI 28.7
[2020-02-14 18:42] VITALS: BP 135/87; PULSE 69; PULSE 75; RESP 16; RESP 17; TEMP 36.2; O2SAT 95; O2SAT 97; BMI 28.3
--- NOTE | 2020-02-14 19:00 | EKG12_ITS ---
Test Reason : DIZZINESS Blood Pressure : / mmHG Vent. Rate : 072 BPM Atrial Rate : 072 BPM P-R Int : 158 ms QRS Dur : 106 ms QT Int : 410 ms P-R-T Axes : 059 080 055 degrees QTc Int : 448 ms Normal sinus rhythm with sinus arrhythmia Normal ECG Confirmed by RADHA CAVANAUGH, BRIONNA ([id number]), international editorial producer CRISELDA COTA ([id number]) on 02/19/2020 8:05:56 AM Referred By: EVENS Confirmed By:BRIONNA GARCIA MD
--- NOTE | 2020-02-14 19:01 | ED.DCSUM_ITS ---
History of Present Illness Chief Complaint: Dizziness Informant: Patient, Family Narrative: 44-year-old male presents with concern for dizziness as well as nausea. States this began approximately 12 hours ago. Was seen at urgent care where they gave him meclizine and Zofran without relief. Patient states that when he lies flat he has no significant symptoms. States that whenever he arises to a seated position or stands he has significant symptoms. Is concerned he may have an abnormality in his blood work. Denies any recent head injury, vision change, headache, neck pain, vomiting, chest pain, shortness of breath. Denies any recent sick contacts. Patient does have a past medical history of vertigo and states that this feels similar but it is more severe. Denies any drugs or alcohol. Past Medical History - Allergies and Home Meds Allergies/Adverse Reactions: Allergies cephalexin [From Keflex] Adverse Reaction (Mild, Verified 02/14/20 18:41) dizziness Primary Care Physician: Flavio Engel DO [Primary Care Provider] - Prior records reviewed: Yes Past Medical History: - - GERD, OA Surgical History: - - back surgery Lives: Spouse/ Significant Other Smoking Status: Former smoker Alcohol: None Drugs: None Review of Systems General: Denies: Chills, Fever, Sweats Eyes: Denies: Visual changes - bilaterally, Diplopia ENT: Denies: Rhinorrhea, Sore throat Cardiovascular: Denies: Chest pain, Palpitations Respiratory: Denies: Dyspnea, Cough, Dyspnea on exertion Gastrointestinal: Reports: Nausea. Denies: Abdominal pain, Vomiting, Diarrhea, Melena, Hematochezia Genitourinary: Denies: Dysuria, Hematuria, Frequency Musculoskeletal: Denies: Back pain, Extremity Pain Skin: Denies: Rash, Wounds Neurological: Reports: - - dizziness. Denies: Headache, Weakness, Numbness Physical Exam Vital Signs/Narrative: Vital Signs Temp Pulse Resp BP Pulse Ox 02/14/20 18:42 97.1 F L 69 17 135/87 H 95 Inital Vital Signs reviewed: Yes General: Well nourished, Well developed, No Acute Distress Head: Normocephalic, Atraumatic Eyes: Perrl, EOMI ENT: Moist mucous membranes, No rhinorrhea Neck: Supple, Nontender Cardiovascular: Regular rate, Regular rhythm, No murmurs Respiratory: No distress, CTA bilaterally, Chest nontender Abdomen: Soft, Nontender, Nondistended, Normal bowel sounds Back: Nontender, Normal Inspection Extremities: Nontender, No edema Skin: Normal color, No rash Neurological: Alert, Oriented x3, Cranial nerves II-XII grossly intact, Normal Strength, Normal Sensation Psychological: Normal affect, Normal Mood Diagnostic/Tx/Re-eval Laboratory Data 02/14/20 02/14/20 02/14/20 19:15 19:15 20:58 WBC 8.8 RBC 4.42 L Hgb 12.5 L Hct 39.3 L MCV 88.9 MCH 28.3 MCHC 31.8 L RDW Std Deviation 44.4 H RDW Coeff of Josh 13.7 Plt Count 299 MPV 10.1 Immature Gran % (Auto) 0.200 Neut % (Auto) 63.4 Lymph % (Auto) 26.7 [place] % (Auto) 8.0 Eos % (Auto) 1.4 Baso % (Auto) 0.3 Absolute Neuts (auto) 5.6 Absolute Lymphs (auto) 2.36 Nucleated RBC % 0 Sodium 139 Potassium 4.0 Chloride 104 Carbon Dioxide 28.0 Anion Gap 7 BUN 23 H Creatinine 0.98 Estim Creat Clear Calc 101.38 Est GFR (MDRD) Af Amer 107 Est GFR (MDRD) Non-Af 88 BUN/Creatinine Ratio 23.6 H Glucose 105 Calcium 8.5 Total Bilirubin 0.20 AST 19 ALT 38 Alkaline Phosphatase 123 H Total Protein 7.8 Albumin 3.7 Globulin 4.1 Albumin/Globulin Ratio 0.9 Lipase 20 L Urine Color Yellow Urine Clarity Clear Urine pH 6.0 Ur Specific [place] 1.015 Urine Protein Negative Urine Glucose (UA) Normal Urine Ketones Negative Urine Occult Blood Negative Urine Nitrite Negative Urine Bilirubin Negative Urine Urobilinogen Normal Ur Leukocyte Esterase Negative Urine RBC 0 SEEN Urine WBC 0 SEEN Ur Squamous Epith Cells 0 SEEN Urine Bacteria 0 SEEN Urine Mucus 0 SEEN - Rhythm Strip Rhythm Strip: Sinus Rhythm Rate: 72 Ectopy: None - EKG Initial EKG Interpretation: Sinus Rhythm - sinus rhythm at 72 bpm. SD interval of 158 ms. QTC of 448 ms. Sinus arrhythmia. No evidence of ST elevation or depression at this time. - Medical Decision Making Patient appears well and nontoxic. No focal neurologic deficit. History consistent with BPPV. Patient was given 1 L normal saline, Zofran, meclizine. Patient had reduction of his symptoms. Electrolytes within normal limits. Will be advised to take Zofran and meclizine at home. Advised on physical therapy as an outpatient. Discharged home in stable condition. ED Disposition - Plan for ED Patient: Disposition: Home or Assisted Living Diagnosis: BPPV (benign paroxysmal positional vertigo), Nausea Instructions: ED BPV Vertigo Referrals: Flavio Engel DO [Primary Care Provider] -
--- NOTE | 2020-02-14 19:05 | ED.RN ---
NO OLD EKGS IN MUSE
[2020-02-14] MEDS: Ondansetron 4 MG/2 ML Vial IV (19:16)
[2020-02-14] MEDS: 0.9% Normal Saline 1,000 ML 1000 ML IV (19:16)
[2020-02-14 19:34] LABS: Absolute Lymphocyte Count 2.36 X10^3/uL (0.83-4.51); Absolute Neutrophil Count 5.6 X10^3/uL (2.0-7.7); Basophil# 0.03 X10^3/uL; Basophil% 0.3 % (0-1); Eosinophil# 0.12 X10^3/uL; Eosinophils% 1.4 % (0-5); Hematocrit 39.3 % (40-54); Hemoglobin 12.5 g/dL (13.0-16.5); Lymphocyte # 2.36 X10^3/ul (4.0); Lymphocyte % 26.7 % (19-41); Mean Corp Hgb Conc 31.8 g/dL (32-36); Mean Corpuscular Hgb 28.3 pg (27.0-32.0); Mean Corpuscular Volume 88.9 fL (80-94); Mean Platelet Vol. 10.1 fl (6.2-12.0); Monocyte# 0.71 X10^3/uL; NRBC Flagged by Analyzer 0 % (0-5); Neutrophil # 5.59 X10^3/uL (2.7-7.7); Neutrophil % 63.4 % (47-70); Platelet Count 299 K/mm3 (150-450); RBC Distribution Width CV 13.7 % (11.6-14.6); RBC Distribution Width SD 44.4 fl (35.1-43.9); Red Blood Count 4.42 M/mm3 (4.6-6.2); White Blood Count 8.8 K/mm3 (4.4-11.0)
[2020-02-14 19:54] LABS: ALB/GLOB Ratio 0.9 RATIO (0.9-2.4); AST(SGOT) 19 U/L (15-37); Alanine Aminotransfer ALT/SGPT 38 U/L (16-61); Albumin, Serum 3.7 g/dL (3.2-5.0); Alkaline Phosphatase 123 U/L (45-117); Anion Gap 7 (5-15); BUN 23 mg/dL (7-18); BUN/Creat Ratio 23.6 RATIO (10-20); Calcium,Total 8.5 mg/dL (8.5-10.1); Chloride 104 mmol/L (98-107); Creatinine, Serum 0.98 mg/dL (0.70-1.30); EST Glomerular Filtration Rate 88 mL/min (>60); Est Glom Filt Rate - Afr Amer 107 mL/min (>60); Estimated Creatinine Clearance 101.38 ml/min; Globulin 4.1 g/dL (2.2-4.2); Glucose 105 mg/dL (74-106); Lipase 20 U/L (73-393); Protein, Total 7.8 g/dL (6.4-8.2); Sodium Level 139 mmol/L (136-145)
[2020-02-14] MEDS: Meclizine HCl 25 MG Tablet 50 MG PO (21:01)
[2020-02-14 21:12] LABS: Bacteria 0 SEEN /hpf (None Seen); Mucous, Urine 0 SEEN /hpf (<or=2+); Red Blood Cells-Urine 0 SEEN /hpf (0-5); Squamous Epithelial Cells - UA 0 SEEN /hpf (0-5); White Blood Cells 0 SEEN /hpf (0-5)
[2020-02-14 21:18] LABS: Color, Urine Yellow (Yellow); Glucose, Dipstick Normal (Normal); Ketone-Dipstick Negative (Negative); Leukocyte Esterase-Dipstick Negative /ul (Negative); Nitrite-Dipstick Negative (Negative); Occult Blood-Urine Negative /ul (Negative); Protein-Dipstick Negative (Negative); Specific Gravity, Urine 1.015 (1.002-1.030); Urine Bilirubin Dipstick Negative (Negative); Urine Clarity Clear (Clear); Urine Urobilinogen Normal (Normal)
[2020-02-14 21:53] VITALS: BP 126/80; RESP 14
== END 2020-02-14 21:54 | disposition home or self-care (01) ==
PROVIDERS: Emergency Provider Emergency Medicine; PCP Family Medicine
DX: H81.10 Benign paroxysmal vertigo, unspecified ear (principal); M19.90 Unspecified osteoarthritis, unspecified site; Z87.891 Personal history of nicotine dependence
CPT/HCPCS: 80053; 81001; 83690; 85025; 93005; 96361; 96374; 99284; J7030; A4216; J2405

== ENCOUNTER → 2020-07-19 09:24 | Outpatient (CLI) | payer OTHER, SELFPAY ==
[2020-07-19 10:14] LABS: Absolute Lymphocyte Count 2.48 X10^3/uL (0.83-4.51); Basophil# 0.02 X10^3/uL; Basophil% 0.4 % (0-1); Eosinophil# 0.21 X10^3/uL; Hematocrit 40.9 % (40-54); Hemoglobin 12.9 g/dL (13.0-16.5); Lymphocyte # 2.48 X10^3/ul (4.0); Lymphocyte % 47.2 % (19-41); Mean Corp Hgb Conc 31.5 g/dL (32-36); Mean Corpuscular Hgb 28.6 pg (27.0-32.0); Mean Corpuscular Volume 90.7 fL (80-94); Mean Platelet Vol. 10.9 fl (6.2-12.0); Monocyte# 0.51 X10^3/uL; Monocyte% 9.7 % (0-10); NRBC Flagged by Analyzer 0 % (0-5); Neutrophil # 2.02 X10^3/uL (2.7-7.7); Neutrophil % 38.5 % (47-70); Platelet Count 209 K/mm3 (150-450); RBC Distribution Width CV 13.6 % (11.6-14.6); RBC Distribution Width SD 45.2 fl (35.1-43.9); Red Blood Count 4.51 M/mm3 (4.6-6.2); White Blood Count 5.3 K/mm3 (4.4-11.0)
[2020-07-19 11:02] LABS: Valproic Acid (Depakene) Level 29 ug/mL (50-100)
[2020-07-19 11:29] LABS: AST(SGOT) 36 U/L (15-37); Alanine Aminotransfer ALT/SGPT 44 U/L (16-61); Albumin, Serum 3.7 g/dL (3.2-5.0); Alkaline Phosphatase 103 U/L (45-117); Anion Gap 3 (5-15); BUN 14 mg/dL (7-18); BUN/Creat Ratio 16.3 RATIO (10-20); Calcium,Total 8.8 mg/dL (8.5-10.1); Chloride 108 mmol/L (98-107); Creatinine, Serum 0.86 mg/dL (0.70-1.30); EST Glomerular Filtration Rate 102 mL/min (>60); Est Glom Filt Rate - Afr Amer 124 mL/min (>60); Globulin 3.6 g/dL (2.2-4.2); Glucose 96 mg/dL (74-106); Potassium 4.5 mmol/L (3.5-5.1); Protein, Total 7.3 g/dL (6.4-8.2); Sodium Level 140 mmol/L (136-145)
== END ==
PROVIDERS: PCP Family Medicine
DX: Z79.899 Other long term (current) drug therapy (principal)
CPT/HCPCS: 36415; 80053; 80164; 84443; 85025

== ENCOUNTER → 2020-11-06 12:45 | Outpatient (CLI) | payer OTHER, SELFPAY ==
[2020-11-06 13:38] LABS: Absolute Lymphocyte Count 2.18 X10^3/uL (0.83-4.51); Absolute Neutrophil Count 1.9 X10^3/uL (2.0-7.7); Basophil# 0.02 X10^3/uL; Basophil% 0.4 % (0-1); Eosinophil# 0.27 X10^3/uL; Eosinophils% 5.8 % (0-5); Hematocrit 39.7 % (40-54); Hemoglobin 12.8 g/dL (13.0-16.5); Lymphocyte # 2.18 X10^3/ul (4.0); Lymphocyte % 46.6 % (19-41); Mean Corp Hgb Conc 32.2 g/dL (32-36); Mean Corpuscular Hgb 29.8 pg (27.0-32.0); Mean Corpuscular Volume 92.3 fL (80-94); Mean Platelet Vol. 10.9 fl (6.2-12.0); Monocyte# 0.35 X10^3/uL; Monocyte% 7.5 % (0-10); NRBC Flagged by Analyzer 0 % (0-5); Neutrophil # 1.85 X10^3/uL (2.7-7.7); Neutrophil % 39.5 % (47-70); Platelet Count 217 K/mm3 (150-450); RBC Distribution Width CV 13.1 % (11.6-14.6); RBC Distribution Width SD 44.3 fl (35.1-43.9); White Blood Count 4.7 K/mm3 (4.4-11.0)
[2020-11-06 14:03] LABS: AST(SGOT) 21 U/L (15-37); Alanine Aminotransfer ALT/SGPT 29 U/L (16-61); Albumin, Serum 3.7 g/dL (3.2-5.0); BUN 14 mg/dL (7-18); CRP 5.38 mg/L (0.0-3.0); Creatinine, Serum 1.05 mg/dL (0.70-1.30); EST Glomerular Filtration Rate 81 mL/min (>60); Est Glom Filt Rate - Afr Amer 98 mL/min (>60)
== END ==
PROVIDERS: PCP Family Medicine; Visit Provider Internal Medicine Rheumatology
DX: M45.0 Ankylosing spondylitis of multiple sites in spine (principal)
CPT/HCPCS: 36415; 82040; 82565; 84450; 84460; 84520; 85025; 86140

== ENCOUNTER → 2021-01-01 12:08 | Outpatient (CLI) | payer OTHER, SELFPAY ==
[2021-01-01 12:35] LABS: Absolute Lymphocyte Count 1.94 X10^3/uL (0.83-4.51); Absolute Neutrophil Count 1.6 X10^3/uL (2.0-7.7); Basophil# 0.02 X10^3/uL; Basophil% 0.5 % (0-1); Eosinophil# 0.16 X10^3/uL; Eosinophils% 3.9 % (0-5); Hematocrit 40.7 % (40-54); Hemoglobin 13.4 g/dL (13.0-16.5); Lymphocyte # 1.94 X10^3/ul (0.83-4.51); Mean Corp Hgb Conc 32.9 g/dL (32-36); Mean Corpuscular Hgb 29.6 pg (27.0-32.0); Mean Corpuscular Volume 89.8 fL (80-94); Mean Platelet Vol. 10.4 fl (6.2-12.0); Monocyte% 9.7 % (0-10); NRBC Flagged by Analyzer 0 % (0-5); Neutrophil % 38.7 % (47-70); Platelet Count 198 K/mm3 (150-450); RBC Distribution Width SD 42.9 fl (35.1-43.9); Red Blood Count 4.53 M/mm3 (4.6-6.2); White Blood Count 4.1 K/mm3 (4.4-11.0)
[2021-01-01 14:43] LABS: Estradiol 19.9 pg/mL; Free T3 3.1 pg/mL (2.18-3.98); PSA,Total - Annual Screen 0.33 ng/mL (0.00-4.00); T4 Free Direct 0.79 ng/dL (0.76-1.46); Thyroid Stim Hormone (TSH) 1.44 uIU/mL (0.358-3.74)
[2021-01-02 12:12] LABS: Vitamin B12 866 pg/mL (211-911); Vitamin D,25 Hydroxy 37.4 ng/mL
== END ==
PROVIDERS: PCP Family Medicine
DX: Z12.5 Encounter for screening for malignant neoplasm of prostate (principal); E29.1 Testicular hypofunction; E55.9 Vitamin D deficiency, unspecified; R53.83 Other fatigue
CPT/HCPCS: 36415; 82306; 82607; 82627; 82670; 84153; 84403; 84439; 84443; 84481; 85025; 82626; G0103

== ENCOUNTER → 2021-03-26 10:05 | Outpatient (CLI) | payer OTHER, SELFPAY | PROVIDERS: PCP Family Medicine | DX: R53.82 Chronic fatigue, unspecified (principal); M25.50 Pain in unspecified joint | CPT/HCPCS: 36415 ==

== ENCOUNTER → 2021-04-02 10:10 | Outpatient (CLI) | payer OTHER, SELFPAY ==
[2021-04-02 11:04] LABS: Estradiol 22.5 pg/mL
== END ==
PROVIDERS: PCP Family Medicine
DX: E29.1 Testicular hypofunction (principal)
CPT/HCPCS: 36415; 82670; 84403

== ENCOUNTER → 2021-10-02 08:26 | Outpatient (CLI) | payer OTHER, SELFPAY | PROVIDERS: PCP Family Medicine | DX: Z11.9 Encounter for screening for infectious and parasitic diseases, unspecified (principal) | CPT/HCPCS: 36415 ==

== ENCOUNTER → 2022-10-26 | Outpatient (CLI) | payer SELFPAY, OTHER ==
--- NOTE | 2022-10-26 13:40 | RAD_ITS ---
STUDY: X-RAY - LUMBAR SPINE REASON FOR EXAM: Male, 46 years old. PAIN TECHNIQUE: 2 view(s) of the lumbar spine were obtained. COMPARISON: September 13, 2017 FINDINGS: Normal lumbar lordosis. There is no substantial scoliosis. There is a normal alignment of the vertebrae. There is multilevel endplate spondylosis of the lumbar vertebrae. Normal disc space heights. Bridging anterior and lateral osteophytes. The soft tissue structures are unremarkable. RAD/Lumbar Spine 2 or 3 Views IMPRESSION: Spondylosis deformans unchanged. Possible diffuse idiopathic skeletal hyperostosis. Electronically Signed: Ankur Sol MD at 18:02 EDT ,
== END | disposition home or self-care (01) ==
PROVIDERS: PCP Family Medicine; Visit Provider Anesthesiology Pain Medicine
DX: M47.816 Spondylosis without myelopathy or radiculopathy, lumbar region (principal)
CPT/HCPCS: 72100

== ENCOUNTER → 2024-04-25 | Outpatient (CLI) | payer SELFPAY, OTHER ==
--- NOTE | 2024-04-25 13:40 | STE_ITS ---
Reason For Study: Pre-Procedure Stress Results Protocol: Stress Echo Glenn Protocol Maximum Predicted HR: 171 bpm Target HR: 145 bpm % Maximum Predicted HR: 82 % Heart Stage Duration Rate BP Comment (mm:ss) (bpm) Baseline 54 120/80Patient denies chest pain Stage 1 3:00 88 110/70Patient denies chest pain Stage 2 3:00 105 130/72Patient denies chest pain Patient denies chest pain. He complains of left leg pain and states Stage 3 3:00 141 146/76that he is unable to walk any farther. Recovery 65 120/82Patient denies chest pain Stress Duration: 9:00 mm:ss Maximum Stress HR: 141 bpm Baseline Echocardiogram Findings Stress Echo Wall motion Data Resting WM Intermediate WM Stress WM Resting Wall Motion Wall Motion Stress No regional wall motion All segments Hyperkinetic. abnormalities noted. EKG Data The baseline ECG displays normal sinus rhythm. Normal stress electrocardiogram. ECHO/Stress Test Echo w/o Contrast Interpretation Summary Patient exercised on the treadmill according to the Glenn protocol for 9 minute s. 85% maximum predicted heart rate achieved. No angina reported. No ischemic changes noted on stress ECG. No echo evidence of ischemia. Ordering Physician: BOBY LYNNE Referring Physician: BOBY LYNNE Performed By: Nguyen Wilson, CALIN, RVT
== END | disposition home or self-care (01) ==
LOC: CVS 13:39
PROVIDERS: PCP Family Medicine
DX: Z01.810 Encounter for preprocedural cardiovascular examination (principal)
CPT/HCPCS: 93017; 93350

== ENCOUNTER 2024-09-25 20:09 | Emergency (ER) | payer OTHER, SELFPAY ==
[2024-09-25 20:11] VITALS: BP 154/87; PULSE 119; RESP 21; TEMP 36.2; O2SAT 95; BMI 26.2
[2024-09-25 20:41] VITALS: BP 143/79; PULSE 111; RESP 22; O2SAT 97
--- NOTE | 2024-09-25 21:05 | ED.RN ---
requesting fluids, hung bag of normal saline. had IV inserted by EMS
[2024-09-25] MEDS: Lorazepam 2 MG/ML WCH Syringe 0.5 MG IV (21:51)
[2024-09-25] MEDS: Ondansetron 4 MG/2 ML Vial IV (21:52)
--- NOTE | 2024-09-25 22:17 | EX.ED.DYSGE1 ---
HPI <KARTHIK Yusuf - Last Filed: 09/25/24 22:21> History of Present Illness Chief Complaint: Overdose Narrative Narrative: Patient presenting today due to agitation and nausea after taking a THC gummy this evening. He is here with his . She reports that he took a 5000 mg delta 8 gummy due to chronic pain. He has never used marijuana in the past. reports that he became agitated and nauseous, prompting her to call EMS. Patient reports that he does not feel well and does appear intoxicated on exam. He denies any other substance use. PFSH <KARTHIK Yusuf - Last Filed: 09/25/24 22:21> PFSH Medical History GERD (gastroesophageal reflux disease) Rectal bleeding GERD (gastroesophageal reflux disease) Anxiety and depression Osteoarthritis Back pain Hypothyroidism Medical History no medical history Home Medications ?Medication ?Instructions ?Recorded ?Last Taken ?Type fluoxetine 20 mg capsule (Prozac) 20 mg PO DAILY 06/16/18 06/24/18 03:30 History quetiapine 100 mg tablet (Seroquel) 100 mg PO DAILY 06/16/18 Unknown History Allergy/AdvReac Type Severity Reaction Status Date / Time cephalexin (From Keflex) AdvReac Mild dizziness Verified 02/14/20 18:41 Family History Mother Cancer skin Thyroid disorder Family History no significant family his Surgical History History of esophagogastroduodenoscopy (EGD) (~2001) History of back surgery Surgical History no surgical history Social History Smoking Status: Former smoker how long ago did patient quit smokin years ROS <KARTHIK Yusuf - Last Filed: 09/25/24 22:21> ROS ED Constitutional Constitutional ED: Denies chills or fever(s) Cardiovascular Cardiovascular: Denies chest pain Respiratory/Chest Respiratory/Chest: Denies dyspnea Gastrointestinal Gastrointestinal: Reports nausea; Denies abdominal pain or vomiting Musculoskeletal Musculoskeletal: Denies arthralgias or myalgias Integumentary Denies rash Neurologic Neurologic: Denies weakness EXAM <KARTHIK Yusuf - Last Filed: 09/25/24 22:21> Physical Exam Const Vital Signs: 09/25/24 20:11 09/25/24 20:41 09/25/24 22:41 Temperature 97.1 F L Temperature Source Axillary Pulse Rate 119 H 111 H 98 Respiratory Rate 21 H 22 H 13 Blood Pressure 154/87 H 143/79 H 127/74 H Blood Pressure Mean 109 100 91 Pulse Ox 95 97 95 Oxygen Delivery Method Room Air Room Air Room Air 09/25/24 23:53 Temperature Temperature Source Pulse Rate 83 Respiratory Rate 19 H Blood Pressure 131/82 H Blood Pressure Mean 98 Pulse Ox 94 Oxygen Delivery Method Room Air Positive well nourished, well developed and no apparent distress General Appearance ED: well developed HEENT Reports normocephalic and head/scalp atraumatic Mouth ED: Yes moist mucous membranes normal Eyes PERRL and EOMs intact bilaterally Neck full ROM and supple Chest Wall inspection of chest normal Resp normal respiratory effort and clear to auscultation bilaterally Cardio regular rate and regular rhythm GI soft to palpation, non-tender, non-distended and no masses Back/Spine normal ROM and normal to inspection Extremity normal to inspection and full ROM Neuro oriented x3, CN's II-XII intact bilaterally, moves all extremities, no focal motor deficits and no sensory deficits noted Sensorium / Orientation: awake and alert Psych mental status grossly normal and thought process normal Skin no rashes or lesions noted and no wounds <Dr. Fiorella Nichols DO - Last Filed: 09/26/24 00:24> Physical Exam Const Vital Signs: 09/25/24 20:11 09/25/24 20:41 09/25/24 22:41 Temperature 97.1 F L Temperature Source Axillary Pulse Rate 119 H 111 H 98 Respiratory Rate 21 H 22 H 13 Blood Pressure 154/87 H 143/79 H 127/74 H Blood Pressure Mean 109 100 91 Pulse Ox 95 97 95 Oxygen Delivery Method Room Air Room Air Room Air 09/25/24 23:53 Temperature Temperature Source Pulse Rate 83 Respiratory Rate 19 H Blood Pressure 131/82 H Blood Pressure Mean 98 Pulse Ox 94 Oxygen Delivery Method Room Air MDM <KARTHIK Yusuf - Last Filed: 09/25/24 22:21> MDM MDM Narrative Medical decision making narrative: Patient presenting today due to agitation and nausea after taking a 5000 mg delta 8 gummy this evening due to chronic pain. He is alert and oriented but does appear intoxicated. He reports not feeling well and feeling nauseous. Patient currently receiving IV fluids from EMS. He will be given IV Ativan and Zofran and will be reassessed. He is otherwise nontoxic-appearing. Marijuana cessation was encouraged. <Dr. Fiorella Nichols, DO - Last Filed: 09/26/24 00:24> [facility] Narrative Medical decision making narrative: Patient presenting today due to agitation and nausea after taking a 5000 mg delta 8 gummy this evening due to chronic pain. He is alert and oriented but does appear intoxicated. He reports not feeling well and feeling nauseous. Patient currently receiving IV fluids from EMS. He will be given IV Ativan and Zofran and will be reassessed. He is otherwise nontoxic-appearing. Marijuana cessation was encouraged. I have personally performed a face to face assessment of the patient and have reviewed the TED Note. I performed a substantive portion of the visit including all aspects of the following. My medina findings include: History is patient is a 48-year-old male of [facility] heritage with history of chronic pain previously had been on Suboxone but stopped taking it about 6 months ago. He bought delta 8 gummy for his pain tonight and started to feel unwell. He is feels very antsy, jittery and nauseous. EMS was called and he is known to be quite tachycardic. He is brought to the ER for further evaluation. On exam patient is overall well-appearing. Head normocephalic atraumatic. No signs of trauma. Pupils equal round reactive to light but mildly dilated. No nystagmus appreciated. Neck is supple. No meningeal signs. Heart tachycardic. Lungs clear to auscultation bilaterally. Abdomen soft and nontender. Patient is she given IV fluids, Ativan and Zofran. Has been dose of 1 mg IV Haldol. Is monitored and returns to baseline. Will be discharged home. Do not think he requires workup as his presentation is likely side effect like toxidrome of delta 8/cannabis and do not think there is further underlying metabolic process going on. Patient and his comfortable with going home. Given return precautions. Counseled to abstain from using delta 8. Other additions or changes: [None] Discharge Plan Triage Chief Complaint: Overdose ED Midlevel Provider: Emily Valera ED Provider: Fiorella Nichols Dx/Rx/DC Orders Clinical Impression: Cannabis intoxication, Nausea Instructions: ED Marijuana Abuse Prescriptions: No Action fluoxetine [Prozac] 20 mg capsule 20 mg PO DAILY quetiapine [Seroquel] 100 mg tablet 100 mg PO DAILY Primary Care Provider: Flavio Engel Referrals: Flavio Engel DO [Primary Care Provider] - 5-7 Days Activity Restrictions/Additional Instructions: Follow-up with PCP and return for any other concerns. Print Language: [place]ar[place] Disposition Disposition: Home, Self Care
[2024-09-25] MEDS: Haloperidol Lactate 5 MG/ML Vial 1 MG IV (22:38)
[2024-09-25 22:41] VITALS: BP 127/74; PULSE 98; RESP 13; O2SAT 95
[2024-09-25 23:53] VITALS: BP 131/82; PULSE 83; RESP 19; O2SAT 94
[2024-09-26 00:35] VITALS: BP 131/82; PULSE 83; RESP 19; TEMP 36.2; O2SAT 94
== END 2024-09-26 00:35 | disposition home or self-care (01) ==
PROVIDERS: Emergency Provider Emergency Medicine; PCP Family Medicine; Visit Provider Emergency Medicine
DX: F12.929 Cannabis use, unspecified with intoxication, unspecified (principal); R11.0 Nausea; Z87.891 Personal history of nicotine dependence
CPT/HCPCS: 96374; 96375; 99285; A4216; J2405

== ENCOUNTER → 2025-01-12 | Outpatient (CLI) | payer OTHER, SELFPAY ==
[2025-01-12 12:48] LABS: Absolute Lymphocyte Count 2.28 X10^3/uL (0.83-4.51); Absolute Neutrophil Count 2.5 X10^3/uL (2.0-7.7); Basophil# 0.03 X10^3/uL; Basophil% 0.5 % (0-1); Eosinophils% 1.8 % (0-5); Hematocrit 41.2 % (40-54); Hemoglobin 14.1 g/dL (13.0-16.5); Lymphocyte # 2.28 X10^3/ul (0.83-4.51); Lymphocyte % 41.5 % (19-41); Mean Corp Hgb Conc 34.2 g/dL (32-36); Mean Corpuscular Hgb 31.1 pg (27.0-32.0); Mean Corpuscular Volume 90.7 fL (80-94); Mean Platelet Vol. 10.8 fl (6.2-12.0); Monocyte# 0.53 X10^3/uL; Monocyte% 9.7 % (0-10); NRBC Flagged by Analyzer 0 % (0-5); Neutrophil # 2.54 X10^3/uL (2.7-7.7); Neutrophil % 46.3 % (47-70); Platelet Count 193 K/mm3 (150-450); RBC Distribution Width CV 13.8 % (11.6-14.6); RBC Distribution Width SD 46.2 fl (35.1-43.9); Red Blood Count 4.54 M/mm3 (4.6-6.2); White Blood Count 5.5 K/mm3 (4.4-11.0)
[2025-01-12 13:38] LABS: ALB/GLOB Ratio 1.7 RATIO (0.9-2.4); AST(SGOT) 30 U/L (<=37); Alanine Aminotransfer ALT/SGPT 34 U/L (<=46); Albumin, Serum 4.5 g/dL (3.5-5.0); Alkaline Phosphatase 83 U/L (40-129); Anion Gap 13 (5-15); BUN 13 mg/dL (4-19); BUN/Creat Ratio 15.1 RATIO (10-20); Calcium,Total 8.9 mg/dL (7.6-11.0); Carbon Dioxide 22.6 mmol/L (21.0-32.0); Chloride 103 mmol/L (98-108); Creatinine, Serum 0.86 mg/dL (0.70-1.20); EST Glomerular Filtration Rate 106 (>60); Globulin 2.6 g/dL (2.2-4.2); Glucose 180 mg/dL (70-99); PSA,Total - Annual Screen 0.54 ng/mL (0.02-4.00); Protein, Total 7.1 g/dL (5.9-8.4); Sodium Level 138 mmol/L (133-145); Total Bilirubin 0.24 mg/dL (0.00-1.30); Vitamin D,25 Hydroxy 70.7 ng/mL (30-100)
== END | disposition home or self-care (01) ==
LOC: LAB 12:06
PROVIDERS: PCP Family Medicine
DX: E55.9 Vitamin D deficiency, unspecified (principal); R53.83 Other fatigue; Z12.5 Encounter for screening for malignant neoplasm of prostate
CPT/HCPCS: 36415; 80053; 82306; 84153; 84443; 85025; G0103

== ENCOUNTER → 2025-05-16 | Outpatient (CLI) | payer OTHER, SELFPAY ==
--- NOTE | 2025-05-16 15:27 | NEURO_ITS ---
NCS and/or EMG Patient Report Ordering Doctor: Gt Horn DATE OF SERVICE: 05/16/25 Presents with complaints of pain in the right elbow and numbness in the fifth digit the right hand. Electrodiagnostic findings: Right median motor nerve demonstrates normal distal latency, amplitude and conduction velocity. Normal right ulnar motor response, including conduction across the elbow. Normal right median and right ulnar F–waves. Sensory responses are within normal limits. Needle EMG testing was performed in the right upper limb. All muscles tested showed no evidence of denervation with normal motor unit action potentials. Electrodiagnostic impression: This is a normal electrodiagnostic study of the right upper limb. There is no electrodiagnostic evidence for peripheral neuropathy, including carpal tunnel or cubital tunnel syndrome. There is no electrodiagnostic evidence for cervical radiculopathy. Multi Select Codes Neurology Neurology Interp Codes: 74869-50 Musc test done w/n test comp (interp) and 9591 0-26 Nrv cndj test 7-8 studies (interp)
== END | disposition home or self-care (01) ==
PROVIDERS: PCP Family Medicine; Referring Provider Student in an Organized Health Care Education/Training Program; Visit Provider Student in an Organized Health Care Education/Training Program
DX: R20.2 Paresthesia of skin (principal); M77.11 Lateral epicondylitis, right elbow
CPT/HCPCS: 95886; 95910